=== PATIENT | female | born 1995 ===

== ENCOUNTER 2018-06-05 12:01 | Emergency (ER) | payer OTHER ==
[2018-06-05 13:06] VITALS: BP 117/59
--- NOTE | 2018-06-05 13:18 | UC ---
Throat Pain/Nasal Sabino HPI - HPI Summary HPI Summary: 22 yo female presents with sore throat. She tells me that on 05/31 she was in [facility] and had two wisdom teeth extracted. On 06/02 she developed a sore throat and was given amoxicillin. On 06/03 her sore throat got much worse and her pain was severe so she went back to the ER in [facility] and was given IV antibiotics, steroids , and clindamycin. She also tells me that a neck CT was done and showed an early abscess. They advised her to be rechecked in 2 days - prompting her visit to UC today. Currently she is feeling much better and pain is mild. She is eating and drinking. Is still taking clindamycin and medrol elisa. Denies fever, chills, difficulty breathing, SOB, chest pain, or rash. - History of Current Complaint Chief Complaint: UCRespiratory Stated Complaint: THROAT COMPLAINT Time Seen by Provider: 06/05/18 13:17 Hx Obtained From: Patient Onset/Duration: Sudden Onset Severity: Mild Pain Intensity: 4 Pain Scale Used: 0-10 Numeric - Allergies/Home Medications Allergies/Adverse Reactions: Allergies Allergy/AdvReac Type Severity Reaction Status Date / Time No Known Allergies Allergy Verified 06/05/18 13:06 Home Medications: Home Medications Clindamycin Cap(NF) [Clindamycin Cap 300 mg Cap(NF)] 400 mg PO QID 06/05/18 [ History Confirmed 06/05/18] Ibuprofen 800 mg PO QID 06/05/18 [History Confirmed 06/05/18] methylPREDNISolone [Medrol Dosepak 4 MG*] 0 mg PO .SEE ELISA INSTRUCTION 06/05/18 [History Confirmed 06/05/18] PMH/Surg Hx/FS Hx/Imm Hx - Additional Past Medical History Additional PMH: None - Surgical History Surgical History: Yes Surgery Procedure, Year, and Place: wisdom teeth extraction - Family History Known Family History: Positive: None - Social History Occupation: Student Lives: With Family Alcohol Use: Rare Substance Use Type: None Smoking Status (MU): Never Smoked Tobacco Review of Systems Constitutional: Negative Skin: Negative Eyes: Negative ENT: Sore Throat Respiratory: Negative Cardiovascular: Negative Gastrointestinal: Negative Neurovascular: Negative Neurological: Negative Psychological: Negative All Other Systems Reviewed And Are Negative: Yes Physical Exam - Summary Physical Exam Summary: GENERAL: NAD. WDWN. No pain distress. SKIN: No rashes, sores, lesions, or open wounds. HEENT: Head: AT/NC Eyes: Conjunctiva clear without inflammation or discharge. Ears: Hearing grossly normal. TMs intact, no bulging, erythema, or edema. Nose: Nasal mucosa pink and moist. NTTP maxillary and frontal sinus. Throat: Posterior oropharynx mild erythema and RIGHT 2+ tonsillar enlargement with moderate exudate. LEFT tonsil without enlargement. Uvula midline. No hoarse voice or muffled voice. NECK: Supple. Right tonsillar LAD with mild TTP. CHEST: CTAB. No r/r/w. No accessory muscle use. Breathing comfortably and in no distress. CV: RRR. Without m/r/g. Pulses intact. Cap refill <2seconds NEURO: Alert. PSYCH: Age appropriate behavior. Triage Information Reviewed: Yes Vital Signs: Initial Vital Signs Temp 98.0 F 06/05/18 12:58 Pulse 55 06/05/18 12:58 Resp 18 06/05/18 12:58 BP 117/59 06/05/18 12:58 Pulse Ox 100 06/05/18 12:58 Vital Signs Reviewed: Yes Throat Pain/Nasal Course/Dx - Course Course Of Treatment: Pt reports that she is much improved. She is currently afebrile and nontoxic appearing. Advised to continue steroids and clindamycin. F /u prn. - Differential Dx/Diagnosis Provider Diagnoses: Right tonsillar abscess Discharge - Sign-Out/Discharge Documenting (check all that apply): Patient Departure All imaging exams completed and their final reports reviewed: No Studies - Discharge Plan Condition: Stable Disposition: HOME Patient Education Materials: Tonsillitis (ED) Referrals: [facility] [Primary Care Provider] - Additional Instructions: If you develop a fever, shortness of breath, chest pain, new or worsening symptoms - please call your PCP or go to the ED. - Billing Disposition and Condition Condition: STABLE Disposition: Home
== END 2018-06-05 14:01 | disposition home or self-care (01) ==
LOC: UCEAST 12:01
DX: J36 Peritonsillar abscess (principal)
CPT/HCPCS: 99201; G0463

== ENCOUNTER 2018-06-24 08:17 | Emergency (ER) | payer OTHER ==
[2018-06-24 08:33] VITALS: BP 111/65
--- NOTE | 2018-06-24 08:59 | UC ---
Throat Pain/Nasal Sabino HPI - HPI Summary HPI Summary: started with ST 2 days ago, was recently treated with clindamycin for tooth extraction no fever ot GI symps, no cough, took ibuprofen last night with relief - History of Current Complaint Chief Complaint: UCRespiratory Stated Complaint: SORE THROAT Time Seen by Provider: 06/24/18 08:49 Hx Obtained From: Patient Hx Last Menstrual Period: 06/03/18 ?: No Onset/Duration: Gradual Onset Severity: Mild Pain Intensity: 0 Associated Signs & Symptoms: Negative: Dysphagia - Allergies/Home Medications Allergies/Adverse Reactions: Allergies Allergy/AdvReac Type Severity Reaction Status Date / Time No Known Allergies Allergy Verified 06/24/18 08:33 Home Medications: Home Medications NK [No Home Medications Reported] 06/24/18 [History Confirmed 06/24/18] PMH/Surg Hx/FS Hx/Imm Hx Previously Healthy: Yes - Surgical History Surgical History: None Surgery Procedure, Year, and Place: wisdom teeth extraction - Family History Known Family History: Positive: None Negative: Hypertension, Diabetes - Social History Occupation: Student Lives: With Family Alcohol Use: Rare Substance Use Type: None Smoking Status (MU): Never Smoked Tobacco Review of Systems Constitutional: Negative Skin: Negative ENT: Sore Throat Respiratory: Negative Cardiovascular: Negative Gastrointestinal: Negative Neurological: Negative Psychological: Negative Is Patient Immunocompromised?: No All Other Systems Reviewed And Are Negative: Yes Physical Exam Triage Information Reviewed: Yes Appearance: Well-Appearing, No Pain Distress, Well-Nourished Vital Signs: Initial Vital Signs Temp 99.3 F 06/24/18 08:27 Pulse 68 06/24/18 08:27 Resp 14 06/24/18 08:27 BP 111/65 06/24/18 08:27 Pulse Ox 99 06/24/18 08:27 Vital Signs Reviewed: Yes ENT: Positive: Pharynx normal, TMs normal, Other - cobblestone appearence throat , PND. Negative: Nasal congestion Dental Exam: Normal Neck exam: Normal Respiratory Exam: Normal Cardiovascular Exam: Normal Neurological Exam: Normal Psychological Exam: Normal Skin Exam: Normal Throat Pain/Nasal Course/Dx - Differential Dx/Diagnosis Differential Diagnosis/HQI/PQRI: Influenza, Mononucleosis, Pharyngitis, Sinusitis, Tonsillitis, URI Provider Diagnoses: upper respiratory infection Discharge - Sign-Out/Discharge Documenting (check all that apply): Patient Departure All imaging exams completed and their final reports reviewed: No Studies - Discharge Plan Condition: Good Disposition: HOME Patient Education Materials: Upper Respiratory Infection (ED) Forms: *Work Release [facility]] - 2 Days (if no better) Additional Instructions: rest, drink plenty of fluids use ibuprofen 800mg every 6 hours afor pain and fever May also add tylenol 650mg every 4-6 hours if needed - Billing Disposition and Condition Condition: GOOD Disposition: Home
== END 2018-06-24 09:09 | disposition home or self-care (01) ==
LOC: UCEAST 08:17
DX: J06.9 Acute upper respiratory infection, unspecified (principal)
CPT/HCPCS: 87651; 99211; G0463

== ENCOUNTER 2018-06-26 09:31 | Emergency (ER) | payer OTHER ==
[2018-06-26 09:43] VITALS: BP 129/78
--- NOTE | 2018-06-26 09:48 | UC ---
Throat Pain/Nasal Sabino HPI - HPI Summary HPI Summary: Here for worsening sore throat. Had two wisdom teeth extracted on left side in [facility] where she is from. Had complications with a sore throat shortly thereafter. Had several rounds of antibiotics and steroids and it finally improved. 4 days ago she had similar symptoms with left sided sore throat and neck soreness. Came to on 06/24 and had a negative strep and was told she had a URI. This morning she woke up and her sore throat was significantly worse and left sided neck pain. No fever. No cough. No congestion. She is inquiring about HIV testing - unproctected sex back in 11/12. 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 [employer] - History of Current Complaint Chief Complaint: UCRespiratory Stated Complaint: SORE THROAT Time Seen by Provider: 06/26/18 09:47 Hx Obtained From: Patient Hx Last Menstrual Period: 06/03/18 Pain Intensity: 7 - Epiglottits Risk Factors Epiglottis Risk Factors: Negative - Allergies/Home Medications Allergies/Adverse Reactions: Allergies Allergy/AdvReac Type Severity Reaction Status Date / Time No Known Allergies Allergy Verified 06/26/18 09:43 Home Medications: Home Medications Ibuprofen 800 mg PO ONCE PRN 06/26/18 [History Confirmed 06/26/18] PMH/Surg Hx/FS Hx/Imm Hx Previously Healthy: Yes - Surgical History Surgical History: None Surgery Procedure, Year, and Place: wisdom teeth extraction - Family History Known Family History: Positive: None Negative: Hypertension, Diabetes - Social History Alcohol Use: Rare Substance Use Type: None Smoking Status (MU): Never Smoked Tobacco Review of Systems Constitutional: Negative Skin: Negative Eyes: Negative ENT: Negative Respiratory: Negative Cardiovascular: Negative Is Patient Immunocompromised?: No All Other Systems Reviewed And Are Negative: Yes Physical Exam Triage Information Reviewed: Yes Appearance: Well-Appearing, No Pain Distress Vital Signs: Initial Vital Signs Temp 99 F 06/26/18 09:39 Pulse 96 06/26/18 09:39 Resp 18 06/26/18 09:39 BP 129/78 06/26/18 09:39 Pulse Ox 99 06/26/18 09:39 Vital Signs Reviewed: Yes Eyes: Positive: Conjunctiva Clear ENT: Positive: Uvula midline, Other - tonsillar edema and exudate significantly worse on left. Cervical adenopathy on left Dental Exam: Normal, Other - No tenderness where wisdom teeth were extracted Neck: Positive: Supple, Nontender, Other: - no nuchal rigidity Respiratory Exam: Normal Cardiovascular: Positive: RRR, No Murmur Skin Exam: Normal Throat Pain/Nasal Course/Dx - Course Course Of Treatment: Rapid strep - invalid result x 2. HIV, Syphilis and GC/C throat swab testing sent. Assessment/Plan: Due to recurrent symptoms after tooth extraction and having been on several rounds of antibiotics and steroids with initial tonsilitis and now recurrence of unilateral tonsillar edema and exudate, recommend referral to ENT. Able to get patient in at 3:30 pm at [facility] - Differential Dx/Diagnosis Provider Diagnoses: tonsillitis Discharge - Sign-Out/Discharge Documenting (check all that apply): Patient Departure All imaging exams completed and their final reports reviewed: No Studies - Discharge Plan Condition: Good Disposition: HOME Patient Education Materials: Tonsillitis (ED) Forms: *School Release [facility] - Additional Instructions: [facility] Follow up with them for further evaluation - Billing Disposition and Condition Condition: GOOD Disposition: Home
[2018-06-28 20:52] LABS: N. gonorrhoeae Source THROAT
== END 2018-06-26 10:54 | disposition home or self-care (01) ==
LOC: UCEAST 09:31
DX: J03.90 Acute tonsillitis, unspecified (principal)
CPT/HCPCS: 36415; 86592; 86703; 87070; 87491; 87591; 99211; G0463

== ENCOUNTER 2018-10-17 08:22 | Emergency (ER) | payer OTHER ==
[2018-10-17 08:44] VITALS: BP 123/72
--- NOTE | 2018-10-17 09:00 | UC ---
FLU HPI - HPI Summary HPI Summary: 2-3 DAYS OF FEVER, COUGH, CONGESTION, HEADACHE, NAUSEA, BODY ACHES AND FATIGUE. BOTH PARENTS AND HER BROTHER WERE DIAGNOSED WITH FLU. - History of Current Complaint Chief Complaint: UCGeneralIllness Stated Complaint: HEADACHE CHILLS BODYACHES SORE THROAT Time Seen by Provider: 10/17/18 08:49 Hx Obtained From: Patient Hx Last Menstrual Period: 10/13/18 Onset/Duration: Gradual Onset, Lasting Days, Still Present Severity Currently: Moderate Severity Initially: Moderate Pain Intensity: 7 Pain Scale Used: 0-10 Numeric Associated Signs & Symptoms: Positive: Fever, Myalgia, Cough, Nasal Congestion, Headache - Allergy/Home Medications Allergies/Adverse Reactions: Allergies Allergy/AdvReac Type Severity Reaction Status Date / Time No Known Allergies Allergy Verified 10/17/18 08:44 PMH/Surg Hx/FS Hx/Imm Hx Previously Healthy: Yes - Surgical History Surgical History: Yes Surgery Procedure, Year, and Place: wisdom teeth extraction - Family History Known Family History: Positive: None Negative: Hypertension, Diabetes - Social History Alcohol Use: Rare Substance Use Type: None Smoking Status (MU): Never Smoked Tobacco Review of Systems All Other Systems Reviewed And Are Negative: Yes Constitutional: Positive: Fever, Chills, Fatigue ENT: Positive: Nasal Discharge Respiratory: Positive: Cough Cardiovascular: Positive: Negative Gastrointestinal: Positive: Nausea Musculoskeletal: Positive: Myalgia Neurological: Positive: Headache Physical Exam Triage Information Reviewed: Yes Appearance: No Pain Distress, Well-Nourished, Ill-Appearing - MILDLY Vital Signs: Initial Vital Signs Temp 101.6 F 10/17/18 08:41 Pulse 100 10/17/18 08:41 Resp 20 10/17/18 08:41 BP 123/72 10/17/18 08:41 Pulse Ox 99 10/17/18 08:41 Vital Signs Reviewed: Yes Eyes: Positive: Conjunctiva Clear ENT: Positive: Hearing grossly normal, Pharynx normal, TMs normal Neck: Positive: Supple, Nontender, No Lymphadenopathy Respiratory Exam: Normal Cardiovascular: Positive: Tachycardia Abdomen Description: Positive: Soft Musculoskeletal: Positive: No Edema Neurological: Positive: Alert Psychological: Positive: Age Appropriate Behavior Skin: Negative: Rashes Flu Course/Dx - Course Course Of Treatment: WILL TREAT EMPIRICALLY FOR FLU GIVEN PT PRESENTATION AND CLOSE EXPOSURE TO PEOPLE WITH FLU. - Differential Dx/Diagnosis Provider Diagnosis: Influenza Discharge - Sign-Out/Discharge Documenting (check all that apply): Patient Departure All imaging exams completed and their final reports reviewed: No Studies - Discharge Plan Condition: Stable Disposition: HOME Prescriptions: Oseltamivir CAP* [Tamiflu CAP*] 75 mg PO BID #10 cap Patient Education Materials: Influenza (ED) Referrals: [facility] [Provider Group] - If Needed Additional Instructions: WILL TREAT EMPIRICALLY FOR FLU GIVEN YOUR EXPOSURE AND SYMPTOMS. TAMIFLU TWICE DAILY FOR 5 DAYS. OTC MEDS NEEDED FOR FEVER, BODY ACHES. STAY WELL HYDRATED AND RESTED. SEEK FOLLOW-UP IF YOU ARE NOT IMPROVING EXPECTED. IBUPROFEN MAX DOSE: 600MG (3 TABS) EVERY 6 HRS OR 800MG (4 TABS) EVERY 8 HRS OR NAPROXEN MAX DOSE: 440MG (2 TABS) EVERY 12 HRS TYLENOL MAX DOSE: 1000MG (2 EXTRA STRENGTH TABS) EVERY 8 HRS OR 650MG (2 REGULAR TABS) EVERY 6 HRS - Billing Disposition and Condition Condition: STABLE Disposition: Home
== END 2018-10-17 09:09 | disposition home or self-care (01) ==
LOC: UCEAST 08:22
DX: J11.1 Influenza due to unidentified influenza virus with other respiratory manifestations (principal)
CPT/HCPCS: 99212; G0463